=== PATIENT | female | born 1990 | race Caucasian/White ===

== ENCOUNTER 2020-01-04 15:49 | Emergency (ER) | payer OTHER, SELFPAY ==
[2020-01-04 16:09] VITALS: BP 112/77; PULSE 96; RESP 16; TEMP 36.4; O2SAT 98
--- NOTE | 2020-01-04 17:02 | ECG_ITS ---
Measurements Intervals [place] Rate: 73 P: 23 HI: 126 QRS: 30 QRSD: 93 T: 30 QT: 394 QTc: 435 Interpretive Statements SINUS RHYTHM NORMAL ECG Electronically Signed On 01-04-2020 18:00:19 CDT by Edwin Hand D.O.
[2020-01-04 17:21] LABS: Basophils Percent Auto 0.5 % (0.2-1.2); Eosinophils Absolute Auto 2.2 K/mm3 (0-0.3); Eosinophils Percent Auto 25.2 % (0-4.4); Hematocrit 36.9 % (37.0-47.0); Hemoglobin 12.1 g/dL (12.0-15.0); Immature Granulocyte Absolute 0.02 K/mm3 (0.00-0.031); Immature Granulocyte Percent A 0.2 % (0-0.5); Lymphocytes Absolute Auto 3.49 K/mm3 (0.9-3.2); Lymphocytes Percent Auto 39.4 % (18.3-44.2); Mean Corpuscular HGB Conc 32.8 g/dl (32-36); Mean Corpuscular Hemoglobin 31.9 pg (26-34); Mean Corpuscular Volume 97.4 fl (80-100); Mean Platelet Volume 9.2 fl (7.4-10.4); Monocytes Absolute Auto 0.6 K/mm3 (0.1-0.6); Monocytes Percent Auto 6.2 % (2.6-8.5); Neutrophils Absolute Auto 2.5 K/mm3 (1.3-6.7); Neutrophils Percent Auto 28.5 % (45.5-73.1); Platelet Count Result 333 k/mm3 (150-375); Red Blood Count 3.79 M/mm3 (4.2-5.4); Red Cell Distribution Width 13.7 % (11.5-14.5); White Blood Count 8.9 K/mm3 (4.5-10.0)
--- NOTE | 2020-01-04 17:28 | ED.GENADULT ---
HPI - General Adult General Chief complaint: Extremity Problem,Nontraumatic Stated complaint: Tingling to bilateral forearms Time Seen by Provider: 01/04/20 16:56 History of Present Illness HPI narrative: Patient is a 29 y/o female complaining of pain, numbness and tingling in both arms and hands for several week. She describes the pain as a burning sensation and rates it as 6/10. 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 She denies any fever, chill or focal weakness. She states she was doing Heroin until recently. 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 Related Data Home Medications Medication Instructions Recorded Confirmed albuterol sulfate 1 inh INHALATION QID PRN 01/04/20 buprenorphine-naloxone [Suboxone] 1 film SUBLINGUAL DAILY 01/04/20 gabapentin 100 mg PO TID 01/04/20 gabapentin 600 mg PO HS 01/04/20 levothyroxine [Synthroid] 25 mcg PO DAILY 01/04/20 quetiapine [Seroquel] 100 mg PO HS 01/04/20 Allergies Allergy/AdvReac Type Severity Reaction Status Date / Time banana Allergy Anaphylaxis Verified 01/04/20 16:38 bismuth subsalicylate Allergy Hives Verified 01/04/20 16:38 [From Pepto-Bismol] ceftriaxone [From Rocephin] Allergy Rash Verified 01/04/20 16:37 latex Allergy Anaphylaxis Verified 01/04/20 16:37 Penicillins Allergy Rash Verified 01/04/20 16:37 Review of Systems Constitutional: Constitutional: Denies chills, Denies fever(s), Denies headache(s) and Denies weakness Eyes: Eyes: Denies blurry vision ENT: Denies headache(s) and Denies neck pain Cardiovascular: Cardiovascular: Denies chest pain and Denies dyspnea Respiratory: Respiratory: Denies cough and Denies dyspnea Gastrointestinal: Gastrointestinal: Denies abdominal pain, Denies diarrhea, Denies nausea and Denies vomiting Genitourinary: Genitourinary: Denies hematuria and Denies dysuria Musculoskeletal: Musculoskeletal: Denies back pain and Denies neck pain Neurologic: Denies headache(s), Reports numbness and Denies weakness Comments: tingling sensation PMFSH Social History Social History Gender identity (if verbalized by the patient): Female Exam Const: General: no acute distress and well developed Orientation/consciousness: oriented to person, oriented to place, oriented to time and patient oriented x3 HENMT: Head: normocephalic Ears: external ears normal General nose exam: Normal external nose present Eyes: General: appearance normal, both eyes and all related structures Conjunctivae: conjunctivae normal Neck: Neck: normal visual inspection and full ROM Chest: Chest palpation & inspection: normal inspection of the chest and no tenderness Resp: Effort & Inspection: normal respiratory effort Auscultation: clear to auscultation bilaterally Cardio: Rate: regular rate Rhythm: regular rhythm GI: GI Palp: No abdominal tenderness and Yes Soft to palpation Skin: General skin exam: normal color and turgor normal Neuro: General: oriented to person, oriented to place, oriented to time and patient oriented x3 Cranial nerves: Yes CN's II-XII intact bilaterally Cognition (Neuro): normal cognition Speech: normal speech Motor exam (neuro): 5/5 motor strength present throughout Sensory Exam: normal sensation Coordination: [id number] test normal and [id number] test normal Extrem: General: normal to inspection, full ROM and no pedal edema Psych: Appearance: grossly normal Mental Status: mental status grossly normal Affect: normal affect Course Vital Signs Vital signs: Vital Signs Temperature 36.4 C L 01/04/20 16:09 Pulse Rate 96 01/04/20 16:09 Respiratory Rate 16 01/04/20 16:09 Blood Pressure 112/77 01/04/20 16:09 Pulse Oximetry 98 01/04/20 16:09 Temperature 36.4 C L 01/04/20 16:09 Pulse Rate 96 01/04/20 16:09 Respiratory Rate 16 0
[2020-01-04 17:34] LABS: Blood Urea Nitrogen 14 mg/dL (7-17); Calcium 8.7 mg/dL (8.4-10.2); Carbon Dioxide 30 mmol/L (22-30); Chloride 104 mmol/L (98-107); Estimated CRCL calculation 133 ml/min; Estimated Glomerular Filt Rate > 60; Glucose 103 mg/dL (65-105); Potassium 3.7 mmol/L (3.4-5.0); Sodium 138 mmol/L (137-145)
[2020-01-04 17:46] LABS: Add Urine Microscopic? YES; Appearance Urine Clear (Clear); Bilirubin Urine Negative (Negative); Blood Urine Negative (Negative); Color Urine Yellow (Yellow); Glucose Urine UA Negative (Negative); Ketones Urine Trace mg/dL (Negative); Leukocyte Esterase Ur 2+ LEU/UL (Negative); Mucus Urine Rare /lpf; Nitrate Urine Negative (Negative); Protein Urine Negative (Negative); Specific Grav Ur 1.027 (1.001-1.035); Squamous Epithelial Cell Urine Many /hpf (Few); WBC Urine 16-20 /hpf
[2020-01-04 18:00] LABS: Barbiturate Screen Urine Negative (Negative); Benzodiazepines Screen Urine Negative (Negative)
[2020-01-04 18:10] LABS: Cannabinoid Screen Urine Positive (Negative); Cocaine Screen Urine Negative (Negative); Methadone Screen Urine Negative (Negative); Opiate Screen Urine Negative (Negative); Phencyclidine Screen Urine Negative (Negative)
[2020-01-04 18:34] LABS: Amphetamine Screen Urine Positive (Negative)
== END 2020-01-04 18:33 | disposition home or self-care (01) ==
PROVIDERS: Emergency Provider Emergency Medicine
DX: R20.2 Paresthesia of skin (principal); N39.0 Urinary tract infection, site not specified
CPT/HCPCS: 36415; 80048; 80307; 81001; 84443; 85025; 87077; 87086; 87088; 87186; 93005; 99283

== ENCOUNTER 2020-03-02 06:24 | Emergency (ER) | payer OTHER, SELFPAY ==
[2020-03-02] VITALS (7 sets, daily range): BP systolic 110–143; BP diastolic 73–105; PULSE 101–136; RESP 15–24; TEMP 37.1; O2SAT 98–100
[2020-03-02] MEDS: NALOXONE HCL 0.4 MG/ML VIAL IV PUSH (07:12)
--- NOTE | 2020-03-02 07:22 | ED.OVERDOSE ---
HPI - Overdose General Chief Complaint: Overdose Stated Complaint: OD Time Seen by Provider: 03/02/20 06:56 History of Present Illness HPI Narrative: Patient presents via EMS with her boyfriend after a fentanyl overdose. He was in the bathroom when he came out she was unresponsive. He put water on her, and gave her Narcan intranasally. She woke up. Here she is very lethargic. She is difficult to arouse. I said we will get to give her some more Narcan and she sat up straight and said not that. She says she has a history of asthma. Onset (ago): hour(s) Timing confirmed by: other (Boyfriend) How Overdose Was Discovered: family/friend present at time Treatments Prior to Arrival: narcan Related Data Home Medications Medication Instructions Recorded Confirmed albuterol sulfate 1 inh INHALATION QID PRN 01/04/20 buprenorphine-naloxone [Suboxone] 1 film SUBLINGUAL DAILY 01/04/20 gabapentin 100 mg PO TID 01/04/20 gabapentin 600 mg PO HS 01/04/20 levothyroxine [Synthroid] 25 mcg PO DAILY 01/04/20 quetiapine [Seroquel] 100 mg PO HS 01/04/20 Allergies Allergy/AdvReac Type Severity Reaction Status Date / Time banana Allergy Anaphylaxis Verified 03/02/20 07:39 bismuth subsalicylate Allergy Hives Verified 03/02/20 07:39 [From Pepto-Bismol] ceftriaxone [From Rocephin] Allergy Rash Verified 03/02/20 07:39 latex Allergy Anaphylaxis Verified 03/02/20 07:39 Penicillins Allergy Rash Verified 03/02/20 07:39 Review of Systems Review of Systems: Narrative: Currently unable to get the review of systems we will try again after the Narcan. [facility], [facility] Past Medical History Medical History (Updated 03/02/20 @ 07:24 by Mari King MD) Accidental fentanyl overdose History of asthma Social History Social History (Updated 03/02/20 @ 07:24 by Mari King MD) Substance use: current Substance use type: opiates Gender identity (if verbalized by the patient): Female Exam Narrative: Exam Narrative: GENERAL: Lethargic, face with multiple erosions. HEAD: Normocephalic, atraumatic. EYES: PERRLA and EOMI. ENT: Nares clear, no rhinorrhea or epistaxis. Mucous membranes moist. NECK: Supple. CHEST: Clear to auscultation. No respiratory distress. HEART: Regular rate and rhythm. No murmur heard. Normal peripheral pulses. ABDOMEN: Soft, nontender, nondistended, normal active bowel sounds. EXTREMITIES: Normal range of motion. No edema. SKIN: Warm, dry, no rash. NEURO: No focal deficits. Alert and oriented x3. PSYCH: Flat affect. Course Reevaluation(s) Reevaluation #1: She says she is feeling better but does not open her eyes. Her speech is slow and garbled. Her boyfriend said this was an accidental overdose. I told him I was going to start the Narcan drip. Date: 03/02/20 Time: 07:56 Reevaluation #2: We did not start the Narcan drip. She was sitting up and smiling. She said she felt better and was ready to go home. Her medical tests were fine. Drug screen was still pending on the amphetamines. She just got out of rehab, and has resources. She agrees not to do drugs again. Date: 03/02/20 Time: 09:13 Vital Signs Vital signs: Vital Signs Temperature 98.7 F 03/02/20 06:35 Pulse Rate 122 H 03/02/20 06:35 Respiratory Rate 15 03/02/20 06:35 Blood Pressure 110/78 03/02/20 06:35 Pulse Oximetry 100 03/02/20 06:35 Temperature 98.7 F 03/02/20 06:35 Pulse Rate 112 H 03/02/20 09:07 Respiratory Rate 18 03/02/20 09:07 Blood Pressure 126/73 03/02/20 09:07 Pulse Oximetry 100 03/02/20 09:07 MDM - Overdose Medical Records Attestation: I reviewed the patient's medical records. Lab Data Result diagrams: 03/02/20 07:37 03/02/20 07:37 Labs: Lab Results 03/02/20 03/02/20 03/02/20 Range/Units 07:37 07:37 07:37 WBC 6.5 (4.5-10.0) K/mm3 RBC 4.23 (4.2-5.4) M/mm3 Hgb 13.2 (12.0-15.0) g/dL Hct 39.7 (37.0-47.0) % MCV 93.9 (80-100) fl MCH
[2020-03-02] MEDS: SODIUM CHLORIDE 0.9% IV 1,000 ML 999 ML IV CONT (07:39)
--- NOTE | 2020-03-02 07:44 | PC.NURSE ---
Placed on bed church at this time, refusing to be straight cathed.
[2020-03-02 07:53] LABS: Basophils Percent Auto 0.5 % (0.2-1.2); Eosinophils Absolute Auto 0.2 K/mm3 (0-0.3); Eosinophils Percent Auto 2.5 % (0-4.4); Hematocrit 39.7 % (37.0-47.0); Hemoglobin 13.2 g/dL (12.0-15.0); Immature Granulocyte Absolute 0.02 K/mm3 (0.00-0.031); Immature Granulocyte Percent A 0.3 % (0-0.5); Lymphocytes Absolute Auto 1.74 K/mm3 (0.9-3.2); Lymphocytes Percent Auto 26.7 % (18.3-44.2); Mean Corpuscular HGB Conc 33.2 g/dl (32-36); Mean Corpuscular Hemoglobin 31.2 pg (26-34); Mean Corpuscular Volume 93.9 fl (80-100); Mean Platelet Volume 9.5 fl (7.4-10.4); Monocytes Absolute Auto 0.6 K/mm3 (0.1-0.6); Monocytes Percent Auto 8.6 % (2.6-8.5); Neutrophils Percent Auto 61.4 % (45.5-73.1); Platelet Count Result 289 k/mm3 (150-375); Red Blood Count 4.23 M/mm3 (4.2-5.4); White Blood Count 6.5 K/mm3 (4.5-10.0)
[2020-03-02 07:56] LABS: Alanine Aminotransferase 17 U/L (4-35); Albumin Level 4.2 g/dL (3.5-5.1); Alkaline Phosphatase 51 U/L (38-126); Anion Gap 9 mmol/L (8-16); Aspartate Amino Transferase 26 U/L (14-36); Bilirubin,Total 1.2 mg/dL (0.2-1.3); Blood Urea Nitrogen 10 mg/dL (7-17); Calcium 8.7 mg/dL (8.4-10.2); Carbon Dioxide 25 mmol/L (22-30); Chloride 104 mmol/L (98-107); Estimated CRCL calculation 145 ml/min; Estimated Glomerular Filt Rate > 60; Glucose 100 mg/dL (65-105); Potassium 3.4 mmol/L (3.4-5.0); Sodium 138 mmol/L (137-145)
[2020-03-02 07:59] LABS: Ethanol < 10 mg/dL (<10)
[2020-03-02 08:42] LABS: Add Urine Microscopic? YES; Appearance Urine Cloudy (Clear); Bacteria Urine Trace /hpf; Bilirubin Urine Negative (Negative); Blood Urine 1+ (Negative); Color Urine Yellow (Yellow); Glucose Urine UA Negative (Negative); Ketones Urine Negative (Negative); Leukocyte Esterase Ur 1+ LEU/UL (Negative); Mucus Urine Few /lpf; Nitrate Urine Negative (Negative); Protein Urine Negative (Negative); Specific Grav Ur 1.009 (1.001-1.035); Squamous Epithelial Cell Urine Many /hpf (Few); Urobilinogen Urine Negative mg/dL (<2.0); WBC Urine 0-3 /hpf
[2020-03-02 08:43] LABS: Pregnancy On Board Control Positive; Urine Pregnancy Test Negative
[2020-03-02 08:53] LABS: Barbiturate Screen Urine Negative (Negative); Benzodiazepines Screen Urine Negative (Negative)
[2020-03-02 09:05] LABS: Cannabinoid Screen Urine Positive (Negative); Cocaine Screen Urine Negative (Negative); Methadone Screen Urine Negative (Negative); Opiate Screen Urine Negative (Negative); Phencyclidine Screen Urine Negative (Negative)
[2020-03-02 09:21] LABS: Amphetamine Screen Urine Positive (Negative)
== END 2020-03-02 09:28 | disposition home or self-care (01) ==
PROVIDERS: Emergency Provider Emergency Medicine
DX: T40.4X1A Poisoning by other synthetic narcotics, accidental (unintentional), initial encounter (principal); J45.909 Unspecified asthma, uncomplicated
CPT/HCPCS: 36415; 80053; 80307; 81001; 81025; 84443; 85025; 96361; 96374; 99284; J2310; J7030